=== PATIENT | male | born 1980 | race Caucasian/White ===

== ENCOUNTER 2017-10-13 20:48 | Emergency (ER) | payer OTHER ==
[~2017-10-13] VITALS: Ht 182.9 cm; Wt 117.9 kg
[2017-10-13] MEDS ORDERED: FLUORESCEIN SODIUM 1 MG STRIP OP ONE (22:15)
[2017-10-13] MEDS ORDERED: FLUORESCEIN SODIUM 1 MG STRIP ONE (22:15)
[2017-10-13] MEDS ORDERED: TETRACAINE HCL 0.5% OPHT DROP 2 ML BOTTLE OP ONE (22:15)
[2017-10-13] MEDS ORDERED: TETRACAINE HCL 0.5% OPHT DROP 2 ML BOTTLE ONE (22:15)
--- NOTE | 2017-10-13 22:16 | NUR ---
MD GODDARD AT BEDSIDE CONDUCTING EYE EXAM
--- NOTE | 2017-10-13 22:30 | NUR ---
Patient discharged to home in stable conditon. Written and verbal after care instructions given. Patient verbalizes understanding of instructions. Patient able to ambulate unassisted with steady gait. Patient left with all personal belongings.
[2017-10-13 22:33] VITALS: BP 136/76
== END 2017-10-13 22:30 | disposition home or self-care (01) ==
LOC: ER 20:53
DX: H10.9 Unspecified conjunctivitis (principal)
CPT/HCPCS: 99283; A4663

== ENCOUNTER 2017-10-18 08:08 | Emergency (ER) | payer OTHER ==
[~2017-10-18] VITALS: Ht 182.9 cm; Wt 117.9 kg
[2017-10-18] MEDS ORDERED: GENT5DRO4 LEFTEYE (08:21)
--- NOTE | 2017-10-18 08:42 | NUR ---
PT WAS EVALUATED BY DR QUINONEZ. PT WAS D/C TO HOME. D/C INSTRUCTIONS GIVEN TO THE PT.
[2017-10-18 08:44] VITALS: BP 143/88
== END 2017-10-18 09:11 | disposition home or self-care (01) ==
LOC: ER 08:08
DX: H10.9 Unspecified conjunctivitis (principal); Z88.6 Allergy status to analgesic agent; Z79.899 Other long term (current) drug therapy
CPT/HCPCS: A4663

== ENCOUNTER → 2022-08-06 | Emergency (ER) | payer BC, OTHER ==
[~2022-08-06] MED LIST: GENT5DRO4 LEFTEYE; NEOMY/BACITRAC/POLYMI OINT 28.35 GM TUBE ONE
== END | disposition left against medical advice (07) ==
LOC: ER 14:24
DX: Z53.21 Procedure and treatment not carried out due to patient leaving prior to being seen by health care provider (principal)